=== PATIENT | female | born 1930 | race Caucasian/White ===

== ENCOUNTER → 2018-02-07 | Outpatient (CLI) | payer MEDICARE ==
[~2018-02-07] MED LIST: ESTR0.3T PO; IOHEXOL 240 MG/ML 50ML VIAL. ONE; IOHEXOL 300 MG/ML 75 ML VIAL. IV ONE; PREG20SO PO; PROG100C15 PO
--- NOTE | 2018-02-07 11:07 | RAD ---
EXAM: Abdomen and pelvis CT with intravenous contrast. HISTORY: Pain. TECHNIQUE: Computed tomographic images of the abdomen and pelvis were obtained following the administration of 75 cc Omnipaque 300 intravenous contrast. Multiplanar reformatting was performed. *One or more of the following individualized dose reduction techniques were utilized for this examination: 1. Automated exposure control. 2. Adjustment of the mA and/or kV according to patient size. 3. Use of iterative reconstruction technique. COMPARISON: None. FINDINGS: Evaluation of the lower thorax demonstrates basilar atelectasis and pleural-parenchymal scarring. There is no infiltrate or pleural effusion. The heart is normal in size. There is mild hepatomegaly. There is a 1.3 cm cyst within the right hepatic dome. The gallbladder is surgically absent. The pancreas and spleen are unremarkable. The adrenal glands are unremarkable. There are few tiny bilateral renal cortical cysts. No suspicious renal lesion is seen. There is a 2 mm nonobstructing right renal stone. There is circumferential mucosal thickening involving the colon from the hepatic flexure to the rectum, consistent with acute colitis of infectious or inflammatory etiologies. There is distal colonic diverticulosis without evidence of diverticulitis. There is no bowel obstruction. There is no free air. There is a 4.1 cm complicated cystic lesion within the left adnexa, possibly ovarian in etiology. There are prominent retroperitoneal lymph nodes, likely reactive or physiologic in etiology. There is a ventral abdominal wall hernia containing fat and resulting in slight protrusion of portions of bowel. No incarceration is seen. There is aortobiiliac atherosclerosis. There is a left hip arthroplasty. There are degenerative changes throughout the spine. There is multilevel grade 1 anterolisthesis. IMPRESSION: 1. Circumferential mucosal thickening involving the colon from the hepatic flexure to the rectum, consistent with acute colitis of infectious or inflammatory etiologies. 2. 4.1 cm complicated cystic lesion within the left adnexa, possibly ovarian in etiology. There is no adjacent diverticulitis to suggest an alternative etiology such as an abscess. The possibility of a vaginal cuff cyst is not excluded. The postmenopausal status of the patient, correlation with a CA-125 tumor marker level and pelvic sonography may be useful. 3. Tiny renal cortical cysts. 4. Small hepatic cyst. 5. Distal colonic diverticulosis without diverticulitis. 6. Small ventral abdominal wall hernia containing fat and resulting in protrusion of small portions of bowel. Electronically signed by: Jojo Hazel MD (02/07/2018 11:03 AM) [facility]
== END | disposition home or self-care (01) ==
LOC: CT 08:07
PROVIDERS: ATTEND Family Medicine
DX: K57.30 Diverticulosis of large intestine without perforation or abscess without bleeding (principal); K43.9 Ventral hernia without obstruction or gangrene; K76.89 Other specified diseases of liver; I70.0 Atherosclerosis of aorta; R16.0 Hepatomegaly, not elsewhere classified; I10 Essential (primary) hypertension
CPT/HCPCS: 74177; Q9966; Q9967